=== PATIENT | male | born 1985 | race Two or more races ===

== ENCOUNTER 2025-06-06 21:42 | Emergency (ER) | payer MEDICAID, OTHER ==
[~2025-06-06] VITALS: Ht 175.3 cm; Wt 81.6 kg
[2025-06-06] MEDS ORDERED: oxyCODONE/APAP (5/325 MG) 1 UDTAB TABLET ONE (22:14)
[2025-06-06] MEDS: KETOROLAC TROMETHAMINE INJ 30 MG/ML VIAL IM ONE (22:14)
[2025-06-06] MEDS ORDERED: KETOROLAC TROMETHAMINE INJ 30 MG/ML VIAL ONE (22:14)
[2025-06-06] MEDS: oxyCODONE/APAP (5/325 MG) 1 UDTAB TABLET PO ONE (22:15)
[2025-06-06] MEDS: IV NS 0.9% 1,000 ML BAG IV ONE (22:40)
[2025-06-06] MEDS ORDERED: PROPOFOL 20 ML IV ONE (22:42)
[2025-06-06] MEDS: PROPOFOL 200 MG/20 ML VIAL IV ONE (22:55)
[2025-06-06 23:51] VITALS: BP 130/78; TEMP 98; O2SAT 98
== END 2025-06-06 23:51 | disposition home or self-care (01) ==
LOC: ER 21:43
DX: M24.411 Recurrent dislocation, right shoulder (principal)
CPT/HCPCS: 99291; 23650; 96374; 96361; 99152; 73030 ×2; J1885; J2704; J7030; G0500